=== PATIENT | female | born 1980 | race Caucasian/White ===

== ENCOUNTER 2025-03-21 14:14 | Outpatient (AMB) | payer OTHER, SELFPAY ==
--- NOTE | 2025-03-21 14:21 | A.OFFVIS_ITS ---
Vital Signs 03/21/25 14:24 Height 5 ft 3 in Weight 188 lb 4 oz BMI 33.3 BP 142/88 H Blood Pressure Location Rt brachial Position Sitting Pulse 97 Pulse Source Pulse Oximeter Pulse Oximetry (%) 99 Oxygen Delivery Method Room Air Intake Visit Reasons: Asthma/ DENIS Allergies amoxicillin (AMOXICILLIN) Allergy (Intermediate, Unverified 03/21/25 14:26) PASSED OUT Penicillins (PENICILLINS) Allergy (Intermediate, Unverified 03/21/25 14:26) UNKNOWN Sulfa (Sulfonamide Antibiotics) (SULFA (SULFONAMIDE ANTIBIOTICS)) Allergy (Intermediate, Unverified 03/21/25 14:26) HIVES HPI HPI Asthma/ DENIS: Details: Leona is a pleasant 44 year old female, never smoker, with underlying asthma and DENIS not on CPAP. She was referred by PCP for further management for DENIS and asthma. Asthma has been present since childhood, primarily exacerbated during winter months, leading to bronchitis/pneumonia if not managed with a steroid inhaler like Pulmicort. The patient uses the inhaler preventively during colder months and reports no significant issues outside this period. She currently denies any respiratory symptoms. Seasonal allergies are severe, managed with Zyrtec, previously required allergen immunotherapy. The patient was diagnosed with obstructive sleep apnea several years ago, reportedly mild, continues with daytime fatigue and loud snoring. The patient has lost over 100 pounds, started on Zepbound in July, which may have impacted the severity of sleep apnea, and a repeat sleep study is considered. Celiac disease was diagnosed last summer, suspected to have contributed to previous weight gain and iron deficiency anemia previously required iron infusions with history of anaphylaxis during iron infusions. The patient adheres to a gluten-free diet, resulting in weight loss and improved anemia, though iron levels fluctuate, requiring monitoring by hematology and has upcoming follow up with [facility]. [facility] Social History (Updated 03/21/25 @ 14:26 by Alva Orozco MANAGER STRATEGY) Patient Tobacco Use Status: Never used Tobacco Review of Systems Const Denies chills, Denies excessive sweating, Denies fever(s), Denies headache(s) a nd Denies night sweats Eyes Denies dry eyes, Denies irritation and Denies itchy eyes ENT Reports Normal hearing present, Denies headache(s), Denies nasal congestion, Denies nasal discharge, Denies post nasal drip and Denies sore throat Card Denies chest pain, Denies chest pain at rest, Denies chest pain with activity, Denies claudication, Denies leg edema, Denies dyspnea, Denies dyspnea on exertion, Denies orthopnea and Denies paroxysmal nocturnal dyspnea Resp Denies chest congestion, Denies cough, Denies excessive phlegm production, Denies pain on inspiration, Denies pain with cough, Denies dyspnea, Denies dyspnea on exertion, Denies stridor and Denies wheezing Musc Denies myalgias Neuro Reports Normal hearing present and Denies headache(s) Endo Denies excessive sweating Ceferino/Lymph Denies lymphadenopathy Aller/Immun Denies itchy eyes, Denies seasonal rhinorrhea and Denies wheezing Physical Exam Vital Signs: Last Vital Signs Pulse 97 03/21/25 14:24 BP 142/88 H 03/21/25 14:24 Pulse Ox 99 03/21/25 14:24 Oxygen Delivery Method Room Air 03/21/25 14:24 BMI result Body Mass Index 33.3 Const General: cooperative, healthy appearing, comfortable, no acute distress, well developed and alert Nutritional Appearance: obese Orientation/consciousness: patient oriented x3 Limitations: no limitations HEENT Head: Yes normal to inspection, Yes normocephalic and Yes atraumatic Ears: hearing grossly normal bilaterally and external ears normal Eyes General: appearance normal, both eyes and all related structures Eyelids: Yes eyelids normal Sclerae: sclerae normal EOM: EOMs intact bilaterally Neck Neck: Yes normal visual inspection and Yes no lymphadenopathy Lymphatic: no lymphadenopathy noted Chest Chest palpation & inspection: normal inspection of the chest Resp Effort & Inspection: normal respiratory effort, able to speak in complete sentences, no audible wheezes, no cough, no stridor, not tachypneic, no tripod positioning and no use of accessory muscles Auscultation: clear to auscultation bilaterally Cardio Jugular venous distension: no JVD Rate: regular rate Rhythm: regular rhythm Skin Other: warm, dry General skin exam: no rashes or lesions noted Neuro General: patient oriented x3 Cranial nerves: Yes Normal hearing present Cognition (Neuro): normal cognition Gait exam (Neuro): Normal gait present Extrem General: Yes normal to inspection, Yes capillary refill normal, Yes no clubbing, cyanosis or edema and Yes no pedal edema Psych Appearance: grossly normal and well kempt Speech and movement: Normal speech and movement present and Clear speech present Affect: normal affect Attitude: cooperative Thought process: Normal thought process present Thought content: Normal thought content present Insight: Good insight present (Psych) Judgement: Good judgement present (Psych) Assessment & Plan Assessment & Plan (1) Asthma: Code(s): J45.909 - Unspecified asthma, uncomplicated Category: Medical (2) Environmental allergies: Code(s): Z91.09 - Other allergy status, other than to drugs and biological substances Category: Medical Plan For asthma management, the patient will continue using Pulmicort during winter months to prevent exacerbations and potential pneumonia. A repeat home sleep study is planned to reassess the severity of obstructive sleep apnea following significant weight loss and continued daytime fatigue. The patient will undergo allergy testing via blood work to identify specific allergens contributing to seasonal allergies. Pulmonary function tests will be conducted to establish a baseline for asthma management. All questions were answered and patient is in agreement of plan. Will follow up to review results or sooner if needed. Orders: Orders Immunoglobulin E Today Z91.09 - Other allergy status, other than to drugs and biological substances Resp Allergy Profile Region I Today Z91.09 - Other allergy status, other than to drugs and biological substances RT home sleep study Today R40.0 - Somnolence PFT pulmonary function test Today J45.909 - Unspecified asthma, uncomplicated Medications: New albuterol sulfate 90 mcg/actuation 2 puffs inhalation Q4-6H PRN 1 ea 3RF shortness of breath or wheezing Coding Level of Care Code New Pt Level 4 (81775) Diagnoses Asthma J45.909 Environmental allergies Z91.09
[2025-03-21 14:24] VITALS: BP 142/88; PULSE 97; O2SAT 99; BMI 33.3
--- OUTSIDE RECORDS SUMMARY | 2025-03-21 14:56 | XMS_ITS | Clinical Summary ---
Author Organization [address] [facility] Address [address] [place] [address] Phone Care Team Providers Care Patch Press Operator Name Role Phone Matt Weller MD Primary Care Provider [phone] Allergies Active Allergy Reactions Criticality Noted Date Comments Amoxicillin 11/03/2019 Penicillins 05/17/2013 Sulfa (Sulfonamide Antibiotics) 05/07 Medications multivitamin (DAILY VITAMIN ORAL) VITAMIN D OR Take by mouth Active buPROPion SR (WELLBUTRIN SR) 200 mg 12 hr tablet TAKE 1 TABLET BY MOUTH TWICE A DAY 3 Active hydrOXYzine HCL (ATARAX) 10 mg tablet Take 1 Tablet by mouth every 8 hours as needed for Anxiety. 3 Active lisdexamfetami ne (VYVANSE) 30 mg capsule Take 1 Capsule by mouth every morning. Active albuterol HFA (PROAIR HFA ; PROVENTIL HFA ; VENTOLIN HFA) 90 mcg/actuation inhaler Inhale 2 puffs by mouth every 4 (four) hours if needed for wheezing or shortness of breath. 6.7 g 4 Active EPINEPHrine (EpiPen 2-Alexsander) 0.3 mg/0.3 mL injection Inject 0.3 mL (0.3 mg total) into the thigh if needed for anaphylaxis. 1 each 4 Active budesonide (PULMICORT) 90 mcg/actuation inhaler Inhale 1 puff by mouth 2 (two) times a day. Rinse mouth with water after use to reduce aftertaste and incidence of candidiasis. Do not swallow. 3 each 1 4 Active BinaxNOW COVID-19 Ag Self Test kit TEST DIRECTED TODAY 4 Active levothyroxine (SYNTHROID, LEVOTHROID) 88 mcg tablet Take 1 tablet (88 mcg total) by mouth 1 (one) time each day. 90 tablet 1 5 Active cetirizine (ZyrTEC) 10 mg tablet Take 1 tablet (10 mg total) by mouth 1 (one) time each day. 90 tablet 1 5 Active ergocalciferol (CALCIDOL, VIT D-2,) 200 mcg/mL (8,000 unit/mL) drops Take 0.5 mL (4,000 Units total) by mouth 1 (one) time each day. Active fluticasone propionate (FLONASE) 50 mcg/actuation nasal spray Administer 2 sprays into each nostril 1 (one) time each day. Shake gently. Before first use, prime pump. After use, clean tip and replace cap. 16 g 5 5 12/26/19 26 Active tirzepatide, weight loss, (Zepbound) 15 mg/0.5 mL injection Inject 0.5 mL (15 mg total) under the skin every 7 (seven) days for 28 days. 2 mL 5 03/30/20 25 Active tirzepatide, weight loss, (Zepbound) 15 mg/0.5 mL injection Inject 0.5 mL (15 mg total) under the skin every 7 (seven) days for 28 days. 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 ALL LEA) 12/25/2024 2:50 PM EDT Lab Draw Station - [address] [facility] [address] [facility] [place] [phone] Vitamin D deficiency; Low vitamin B12 level; Screening for metabolic disorder; Edilberto's disease 12/25/2024 2:15 PM EDT Office Visit Bariatric Surgery - [place] [address] [place] [phone] Tomasa Beth PA Obesity (BMI 35.0-39.9 without comorbidity) (Primary Dx) 12/25/2024 1:00 PM EDT Office Visit Internal Medicine - [facility] [address] [place] [address] Lakshmi Posada NP Screening for metabolic disorder (Primary Dx); Moderate persistent asthma without complication; DENIS (obstructive sleep apnea); Vitamin D deficiency; Obesity (BMI 35.0-39.9 without comorbidity); Edilberto's disease; Attention deficit hyperactivity disorder (ADHD), combined type; Other depression; Low vitamin B12 level; Postnasal drip; Allergy to gluten from Last 3 Months Immunizations Name Administration Dates Next Due HPV 9-valent (Gardisil) 9yo to less than 46yo 10/16/2024,11/17/2023,09/03/2023 Influenza Quadravalent, MDCK , 0.5ml, preservative free (Flucelvax) 6mo and older 07/16/2023 Influenza Quadrivalent, 0.5m l, preservative free (Fluarix; FluLaval; Fluzone) ages 6mo and older (Afluria) 3yo and older 07/16/2022,07/14/2021,05/21/2020 Pneumococcal conjugate 20 va lent (Prevnar 20, PCV 20) 2mo and older 08/20/2022 Td Tetanus diptheria (Tdvax) 7yo and older 07/16 Tdap Tetanus diptheria acell ular pertussis (Boostrix; Adacel) 7yo and older 07/14/2013 Surgical History Surgery Date Site/Laterality Comments NASAL SEPTUM SURGERY 2008 PROCEDURE: SD SEPTOPLASTY/SUBMUCOUS RESECJ W/WO CARTILAGE GRF TONSILLECTOMY 2008 PROCEDURE: HISTORICAL TONSILLECTOMY SECTION 2010 PROCEDURE: HISTORICAL DELIVERY ADENOIDECTOMY PROCEDURE: HISTORICAL ADENOIDECTOMY Family History Medical History Relation Name Comments Allergies Father Breast cancer Maternal Grandmother Depression Mother Osteoporosis Mother Thyroid disease Mother Relation Name Status Comments Father Maternal Grandmother Mother Social History Tobacco Use Types Packs/Day Years Used Date Smoking Tobacco: Never Smokeless Tobacco: Never Tobacco Cessation:Counseling Given: Not Answered Alcohol Use Standard Drinks/Week Comments No 0 (1 standard drink = 0.6 oz pur e alcohol) Comments Unknown Sex and Gender Information Value Date Recorded Sex Assigned at Female 07/11/2024 12:22 AM EST Legal Sex Female 9:40 AM EST Gender Identity Female 07/11/2024 12:22 AM EST Sexual Orientation Not on file Obstetrics History Last Filed Vital Signs Vital Sign Reading Time Taken Comments Blood Pressure 132/90 12/25/2024 2:15 PM EDT Pulse 96 12/25/2024 2:15 PM EDT Temperature 36.6 C (97.8 F) 12/25/2024 1:03 PM EDT Respiratory Rate - - Oxygen Saturation - - Inhaled Oxygen Concentration - - Weight 95.3 kg (210 lb) 12/25/2024 2:15 PM EDT Height 160 cm (5' 3 ) 12/25/2024 2:15 PM EDT Body Mass Index 37.2 12/25/2024 2:15 PM EDT Plan of Treatment Upcoming Encounters Date Type Department Care Team (Late st Contact Info) Description 03/28/2025 3:45 PM EDT Office Visit Bariatric Surgery - [place] [address] [phone] Tomasa Beth PA [address] [address] 06/26/2025 2:30 PM EDT Office Visit Internal Medicine - [address] [phone] Lakshmi Posada, LUZ [address] [place] [id number] Health Maintenance Due Date Last Done Comments Hepatitis B Vaccines (1 of 3 - 19+ 3-dose series) 1999 HIV Screening 08/15/2022 Hepatitis C Screening 08/15/2022 Social Influencers of Health Screening 08/15/2022 Depression Screening 07/16/2024 07/16/2023 Cervical Cancer Screening: Pap Smear 02/11/2025 02/11/2022 Influenza Vaccine (#1) 2025 , 07/16/2022, 07/14/2021, Additional history exists Breast Cancer Screening 10/03/2026 10/03/2024 Cholesterol Screening (Lipid Panel) 02/25/2027 02/25/2022 DTaP,Tdap,and Td Vaccines (3 - Td or Tdap) 07/16/2033 07/16/2023, 07/14/2013 Pneumococcal Vaccine: Pediatrics (0 to 5 Years) and At-Risk Patients (6 to 49 Years) Completed 08/20/2022 COVID-19 Vaccine Completed 07/24/2024, , 07/16/2022, Additional history exists HPV Vaccines Completed 10/16/2024, 11/04, 09/03/2023 HIB Vaccines Aged Out No longer eligi ble based on patient's age to complete this topic Hepatitis A Vaccines Aged Out No long er eligible based on patient's age to complete this topic IPV Vaccines Aged Out No longer eligi ble based on patient's age to complete this topic MMR Vaccines Aged Out No longer eligi ble based on patient's age to complete this topic Meningococcal ACWY Vaccine Aged Out N o longer eligible based on patient's age to complete this topic Meningococcal B Vaccine Aged Out No l onger eligible based on patient's age to complete this topic RSV Immunization Patients Under 20 months Aged Out No longer eligible based on patient's age to complete this topic Varicella Vaccines Aged Out No longer eligible based on patient's age to complete this topic Procedures Procedure Name Priority Date/Time Associated Diagnosis Comments THYROID STIMULATING HORMONE WITH REFLEX TO FREE T4 AND FREE T3 Routine 12/25/2024 3:29 PM EDT Edilberto's disease COMPREHENSIVE METABOLIC PANEL Routine 12/25/2024 3:29 PM EDT Screening for metabolic disorder VITAMIN B12 Routine 12/25/2024 3:29 PM EDT Low vitamin B12 level VITAMIN D 25 HYDROXY Routine 12/25/2024 3:29 PM EDT Vitamin D deficiency EXTERNAL MAMMOGRAM REPORT 10/03/2024 HM DEPRESSION SCREENING Routine 07/16/2023 LIPID PANEL Routine 02/25/2022 HM PAP SMEAR Routine 02/11/2022 from Last 3 Months or Most Recently Relevant to Health Maintenance Results * Thyroid stimulating hormone with reflex to free t4 and free t3 (12/25/2024 3:29 PM EDT) Pathologist [facility] TSH 0.85 0.40 - 4.00 mcIU/mL LAB CHEMISTRY METHOD 12/25/2024 9:21 PM EDT [facility] Blood Venous blood specimen / Unknown Venipuncture / Unknown 12/25/2024 3:29 PM EDT 12/25/2024 4:32 PM EDT us Lakshmi Orta AGRICULTURAL SERVICE WORKER LAB BLOOD ORDERABLES Final R esult [facility] [address] [place] [address], [place] [phone] * Vitamin D 25 hydroxy (12/25/2024 3:29 PM EDT) Pathologist [facility] Vit D, 25-Hydroxy 30.7 30.0 - 80.0 ng/mL LAB CHEMISTRY METHOD 12/25/2024 9:21 PM EDT [facility] Blood Venous blood specimen / Unknown Venipuncture / Unknown 12/25/2024 3:29 PM EDT 12/25/2024 4:32 PM EDT us Lakshmi Orta AGRICULTURAL SERVICE WORKER LAB BLOOD ORDERABLES Final R esult Performing Organization Address City/[facility]/ZIP Co de Phone Number [facility] [address] [place] [address], [place] [phone] * (ABNORMAL) Vitamin B12 (12/25/2024 3:29 PM EDT) [facility] Vitamin B-12 1,591(H) 250 - 900 pcg/mL LAB CHEMISTRY METHOD 12/25/2024 8:32 PM EDT [facility] Blood Venous blood specimen / Unknown Venipuncture / Unknown 12/25/2024 3:29 PM EDT 12/25/2024 4:32 PM EDT us Lakshmi Orta AGRICULTURAL SERVICE WORKER LAB BLOOD ORDERABLES Final R esult Performing Organization Address City/[facility]/ZIP Co de Phone Number [facility] [address] [place] [address], [place] [phone] * (ABNORMAL) Comprehensive metabolic panel (12/25/2024 3:29 PM EDT) [facility] Sodium 135 133 - 145 mmol/L LAB CHEMISTRY METHOD 12/25/2024 8:32 PM EDT [facility] Potassium 4.5 3.5 - 5.5 mmol/L LAB CHEMISTRY METHOD 12/25/2024 8:32 PM EDT [facility] Chloride 101 96 - 110 mmol/L LAB CHEMISTRY METHOD 12/25/2024 8:32 PM EDT [facility] CO2 26 21 - 32 mmol/L LAB CHEMISTRY METHOD 12/25/2024 8:32 PM EDT [facility] Anion Gap 8 3 - 11 LAB CHEMISTRY METHOD 12/25/2024 8:32 PM EDT [facility] Glucose 103(H) 70 - 100 mg/dL LAB CHEMISTRY METHOD 12/25/2024 8:32 PM [facility] BUN 9 5 - 25 mg/dL LAB CHEMISTRY METHOD 12/25/2024 8:32 PM [facility] Creatinine 0.95 0.50 - 1.10 mg/dL LAB CHEMISTRY METHOD 12/25/2024 8:32 PM [facility] eGFR 76 >=60 mL/min/1. 73m2 LAB CHEMISTRY METHOD 12/25/2024 8:32 PM [facility] Comment:Calculation based on the Chronic Kidney Disease Epidemiology Collaboration (CKD-EPI) equation refit without adjustment for race. BUN/Creatinine Ratio 9.5 LAB CHEMISTRY METHOD 12/25/2024 8:32 PM [facility] Calcium 10.0 8.5 - 10.5 mg/dL LAB CHEMISTRY METHOD 12/25/2024 8:32 PM [facility] AST (SGOT) 16 10 - 42 unit/L LAB CHEMISTRY METHOD 12/25/2024 8:32 PM [facility] ALT (SGPT) 25 10 - 60 unit/L LAB CHEMISTRY METHOD 12/25/2024 8:32 PM [facility] Alkaline Phosphatase 92 42 - 121 unit/L LAB CHEMISTRY METHOD 12/25/2024 8:32 PM [facility] Total Protein 7.0 6.0 - 8.0 g/dL LAB CHEMISTRY METHOD 12/25/2024 8:32 PM [facility] Albumin 4.1 3.2 - 5.0 g/dL LAB CHEMISTRY METHOD 12/25/2024 8:32 PM [facility] Total Bilirubin 0.6 0.0 - 1.4 mg/dL LAB CHEMISTRY METHOD 12/25/2024 8:32 PM [facility] Blood Venous blood specimen / Unknown Venipuncture / Unknown 12/25/2024 3:29 PM EDT 12/25/2024 4:32 PM EDT Lakshmi Orta NP LAB BLOOD ORDERABLES Final R esult [facility] [address] [place] [address], [place] [phone] * External Mammogram Report (10/03/2024) Anatomical Region Laterality Modality Mammography Provider [facility] BI PROCEDURES Final Result * Depression Screening (07/16/2023) Depression Screening Abstracted Historical Provider HEALTH MAINTENANCE Final Result * Lipid panel (02/25/2022) LDL/HDL Ratio 3 0 - 4 Triglycerides 87 0 - 150 mg/dL Cholesterol 163 0 - 200 mg/dL HDL 51 >=40 mg/dL LDL Cholesterol 95 0 - 100 mg/dL Blood Venous blood specimen / Unknown Historical Provider LAB BLOOD ORDERABLES Sujatha l Result * Pap Smear (02/11/2022) Pap smear No Interpretation , Abstracted Historical Provider HEALTH MAINTENANCE Final Result from Last 3 Months or Most Recently Relevant to Health Maintenance [place] [address] MEDICA[place] Care Teams Patch Press Operator Relationship Specialty Start Date End Date Matt Weller MD [address] [place] [id number] PCP - General Internal Medicine 10/25/19
== END 2025-03-21 14:57 | disposition home or self-care (01) ==
LOC: HO.HPSW 14:15
PROVIDERS: PCP Internal Medicine; Visit Provider Nurse Practitioner Family
DX: J45.909 Unspecified asthma, uncomplicated (principal); Z91.09 Other allergy status, other than to drugs and biological substances
CPT/HCPCS: 99204

== ENCOUNTER → 2025-06-19 12:43 | Outpatient (REF) | payer OTHER, SELFPAY ==
--- OUTSIDE RECORDS SUMMARY | 2025-06-19 15:22 | XMS_ITS | Clinical Summary ---
Author Organization [facility] Address [address] [address] Phone Care Team Providers Care Senior Market Intelligence Consultant Name Role Phone Sherry Han NP Primary Care Provider Allergies Active Allergy Reactions Criticality Noted Date Comments Amoxicillin 01/28/2024 Penicillins Other (See Comments) 12/06/2008 syncope Sulfa (Sulfonamide Antibiotics) Other (See Comments) 12/06/2008 rash Active Problems Problem Noted Date Diagnosed Date Graves' disease 05/28/2008 Overview (10/27/2014): Graves' disease; Hyperthyroid 08/08-07/10 on methimazole hyperthyroid 01/08-02/09 on PTU Asthma 05/28/2008 Overview (10/27/2014): Asthma Uncoded 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 Not on paola e 01/28/2024 Are you concerned about learning? Not on file 01/28/2024 No 01/28/2024 No 01/28/2024 Digital Access Answer Date Recorded No 01/28/2024 No 01/28/2024 Reliable internet access at home? Not on file 01/28/2024 Device with a working camera? Not on file Intimate Partner Violence Answer Date R ecorded Are you denied basic needs s uch as food, clothing, or medical care? No 01/28/2024 In the past 12 months have y ou been in a relationship with a person who hurts, threatens, or tries to control you? No 01/28/2024 Are you denied basic needs s uch as food, clothing, or medical care? No 01/28/2024 In the past 12 months have y ou been in a relationship with a person who hurts, threatens, or tries to control you? No 01/28/2024 Comments Unknown Sex and Gender Information Value Date Recorded Sex Assigned at Female 02/02/2024 9:35 AM EDT Legal Sex Female 5:50 PM EST Gender Identity Female 02/02/2024 9:35 AM EDT Sexual Orientation Straight 02/02/2024 9: 35 AM EDT Last Filed Vital Signs Vital Sign Reading Time Taken Comments Blood Pressure 116/66 01/28/2024 11:00 PM EDT Pulse 77 01/28/2024 11:00 PM EDT Temperature 36.6 C (97.9 F) 01/28/2024 11:00 PM EDT Respiratory Rate 16 01/28/2024 11:00 PM EDT Oxygen Saturation 97% 01/28/2024 11:00 PM EDT Inhaled Oxygen Concentration - - Weight 117.9 kg (260 lb) 01/28/2024 4:55 PM EDT Height 162.6 cm (5' 4 ) 01/28/2024 4:55 PM EDT Body Mass Index 44.63 01/28/2024 4:55 PM EDT Plan of Treatment Health Maintenance Due Date Last Done Comments Adult Td,Tdap Booster 1980 LIPID PANEL 1980 DEPRESSION SCREENING 1992 SMOKING Hx and SMOKELESS TOB ACCO SCREENING 1993 HEPATITIS C SCREENING 1998 HIV ONE-TIME SCREENING (18-6 5 YEARS) 1998 PNEUMOCOCCAL VACCINES (0-49 years) (1 of 2 - PCV) 1999 PAP SMEAR 2001 MAMMOGRAM 2020 INFLUENZA VACCINE (#1) 2025 COVID-19 VACCINE (1 - 2024-2 6 season) 2025 COLOGUARD 2025 COLONOSCOPY 2025 COLORECTAL CANCER SCREENING 2025 FIT TEST 2025 FOBT 2025 SIGMOIDOSCOPY 2025 VIRTUAL COLONOSCOPY 2025 SCREENING FOR DIABETES 01/27/2027 01/28/2024 HEPATITIS A VACCINES Aged Out No long er eligible based on patient's age to complete this topic HIB VACCINES Aged Out No longer eligi ble based on patient's age to complete this topic MENINGOCOCCAL VACCINES (ACWY) Aged Out No longer eligible based on patient's age to complete this topic MENINGOCOCCAL VACCINES (B) Aged Out N o longer eligible based on patient's age to complete this topic Medical Devices Not on file Insurance [facility] Address: [address] [address] [facility] Address[facility] [address] [address] [facility] Address[facility] [address] [address] [facility] Care Teams Senior Market Intelligence Consultant Relationship Specialty Start Date End Date Sherry Han NP [address] [place] [phone] PCP - General Nurse Practitioner 01/28/24 Additional Source Comments The information contained in this document represents components of the legal health record. It is not the complete legal health record.[facility]
--- OUTSIDE RECORDS SUMMARY | 2025-06-19 15:22 | XMS_ITS | Encounter Summary ---
Author Organization [facility] Address [address] [address] Phone Care Team Providers Care Manager Money Name Role Phone Sherry Han NP Primary Care Provider [phone] Encounter Details Date Type Department Care Team (Late st Contact Info) Description 01/28/2024 Procedure Pass [facility], [facility] Scan - [address] [address] Social History Tobacco Use Types Packs/Day Years [...] Orientation Straight 02/02/2024 9: 35 AM EDT documented as of this encounter Functional Status * Calculated C-SSRS Risk Score (Lifetime/Recent) Answer Date of Assessment Author No Risk Indicated 01/28/2024 4:50 PM EDT Davis Emery, BRENNEN * [place] Suicide Severity Rating Scale (Screener/Recent Self-Report) Question Answer Date of Assessment Author 1. Wish to be (Past 1 Month) No 024 4:50 PM EDT Davis Emery, BRENNEN 2. Non-Specific Active Suici dulce Thoughts (Past 1 Month) No 01/28/2024 4:50 PM EDT Davis Emery, BRENNEN 6. Suicidal Behavior (Lifetime) No 4:50 PM EDT Davis Emery, BRENNEN documented as of this encounter Plan of Treatment Not on file documented as of this encounter Visit Diagnoses Not on filedocumented in this encounter Care Teams Manager Money Relationship Specialty Start Date End Date Sherry Han NP [address] [place] [id number] PCP - General Nurse Practitioner 01/28/24 documented as of this encounter Additional Source Comments The information contained in this document represents components of the legal health record. It is not the complete legal health record.[facility]
--- OUTSIDE RECORDS SUMMARY | 2025-06-19 15:22 | XMS_ITS | Clinical Summary ---
Author Organization 175 [facility] Address [address] [place] [address] Phone Care Team Providers Care Plant And Instrument Engineer Name Role Phone Matt Weller MD Primary Care Provider Un available Allergies Active Allergy Reactions Criticality Noted Date [...] hours as needed for Anxiety. 3 Active lisdexamfetamin e (VYVANSE) 30 mg capsule Take 1 Capsule [...] 16 g 5 5 12/26/19 26 Active B complex-vitamin C-folic acid (NEPHROCAPS) 1 mg capsuleIndicati ons:Class 1 obesity due to excess calories with body mass index (BMI) of 33.0 to 33.9 in adult, unspecified whether serious comorbidity present Take 1 capsule by mouth 1 (one) time each day. 30 capsule 11 5 05/11/20 26 Active tirzepatide, weight loss, (Zepbound) 15 mg/0.5 mL injectionIndica tions:Class 1 obesity due to excess calories with body mass index (BMI) of 33.0 to 33.9 in adult, unspecified whether serious comorbidity present Inject 0.5 mL (15 mg total) under the skin every 7 (seven) days. 2 mL 5 Active tirzepatide, weight loss, (Zepbound) 15 mg/0.5 mL injectionIndica tions:Class 1 obesity due to excess calories with body mass index (BMI) of 33.0 to 33.9 in adult, unspecified whether serious comorbidity present Inject 0.5 mL (15 mg total) under the skin every 7 (seven) days. 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 Overview (06/30/2024): Sees [facility] Endocrinology Vitamin D deficiency 12/14/2016 Asthma 12/11/2016 Resolved Problems Problem Noted Date Diagnosed Date Resolved Date Obesity (BMI 35.0-39.9 without comorbidity) 08/09/2024 03/28/2025 Encounters Date Type Department Care Team Description 03/28/2025 3:45 PM EDT Office Visit Bariatric Surgery - [address] [place] [address] Tomasa Beth, PA Class 1 obesity due to excess calories with body mass index (BMI) of 33.0 to 33.9 in adult, unspecified whether serious comorbidity present (Primary Dx) from Last 3 Months Immunizations Immunization Administration Dates Next Due HPV 9-valent (Gardisil) [...] Site/Laterality Comments NASAL SEPTUM SURGERY 2008 PROCEDURE: IL SEPTOPLASTY/SUBMUCOUS RESECJ W/WO CARTILAGE GRF TONSILLECTOMY 2008 PROCEDURE: HISTORICAL TONSILLECTOMY SECTION 2009 PROCEDURE: HISTORICAL DELIVERY ADENOIDECTOMY PROCEDURE: HISTORICAL ADENOIDECTOMY [...] Sign Reading Time Taken Comments Blood Pressure 150/100 03/28/2025 3:44 PM EDT Pulse 106 03/28/2025 3:44 PM EDT Temperature 36.6 C (97.8 F) 12/25/2024 1:03 PM EDT Respiratory Rate - - Oxygen Saturation - - Inhaled Oxygen Concentration - - Weight 84.6 kg (186 lb 6.4 oz) 03/28/2025 3:44 P M EDT Height 160 cm (5' 3 ) 03/28/2025 3:44 PM EDT Body Mass Index 33.02 03/28/2025 3:44 PM EDT Plan of Treatment Upcoming Encounters Date Type Department Care Team (Late st Contact Info) Description 06/26/2025 2:30 PM EDT Office Visit Internal Medicine - [facility] [address] [place] [address] Lakshmi Posada NP [address] [place] [address] 06/27/2025 9:45 AM EDT Office Visit Bariatric Surgery - [place] [address] [place] [phone] Tomasa Beth PA [address] [place] [address] Health Maintenance Due Date Last Done Comments Colorectal Cancer Screening: Colonoscopy 1980 Hepatitis B Vaccines (1 of 3 - 19+ 3-dose series) 1999 HIV Screening 08/15/2022 Hepatitis C Screening 08/15/2022 Social Influencers of Health Screening 08/15/2022 Depression Screening 09/06/2024 07/16/2023 Cervical Cancer Screening: Pap Smear 02/11/2025 02/11/2022 Influenza Vaccine (#1) 2025 , 07/16/2022, 07/14/2021, Additional history exists Breast Cancer Screening 10/03/2026 10/03/2024 Cholesterol Screening (Lipid Panel) 02/25/2027 02/25/2022 DTaP,Tdap,and Td Vaccines (3 - Td or Tdap) 07/16/2033 07/16/2023, 07/14/2013 RSV Immunization Adult Patients (1 - 1-dose 75+ series) 2055 Pneumococcal Vaccine: Pediatrics (0 to 5 Years) [...] Procedure Name Priority Date/Time Associated Diagnosis Comments ALLERGEN RESPIRATORY PROFILE AREA 1 CT,MA,ME,NH,NJ,PA,RI,V T IGE Routine 04/27/2025 4:31 PM EDT Allergy to sunlight IMMUNOGLOBULIN IGE Routine 04/27/2025 4: 31 PM EDT Allergy to sunlight SELENIUM SERUM Routine 04/27/2025 4:31 PM EDT Class 1 obesity due to excess calories with body mass index (BMI) of 33.0 to 33.9 in adult, unspecified whether serious comorbidity present VITAMIN B1 Routine 04/27/2025 4:31 PM EDT Class 1 obesity due to excess calories with body mass index (BMI) of 33.0 to 33.9 in adult, unspecified whether serious comorbidity present VITAMIN B12 Routine 04/27/2025 4:31 PM EDT Class 1 obesity due to excess calories with body mass index (BMI) of 33.0 to 33.9 in adult, unspecified whether serious comorbidity present VITAMIN D 25 HYDROXY Routine 04/27/2025 4:31 PM EDT Class 1 obesity due to excess calories with body mass index (BMI) of 33.0 to 33.9 in adult, unspecified whether serious comorbidity present VITAMIN B6 Routine 04/27/2025 4:31 PM EDT Class 1 obesity due to excess calories with body mass index (BMI) of 33.0 to 33.9 in adult, unspecified whether serious comorbidity present ZINC Routine 04/27/2025 4:31 PM EDT Class 1 obesity due to excess calories with body mass index (BMI) of 33.0 to 33.9 in adult, unspecified whether serious comorbidity present IRON AND TIBC Routine 04/27/2025 4:31 PM EDT Class 1 obesity due to excess calories with body mass index (BMI) of 33.0 to 33.9 in adult, unspecified whether serious comorbidity present FOLATE Routine 04/27/2025 4:31 PM EDT Class 1 obesity due to excess calories with body mass index (BMI) of 33.0 to 33.9 in adult, unspecified whether serious comorbidity present COMPREHENSIVE METABOLIC PANEL Routine 04/27/2025 4:31 PM EDT Class 1 obesity due to excess calories with body mass index (BMI) of 33.0 to 33.9 in adult, unspecified whether serious comorbidity present HEPATITIS B SURFACE ANTIBODY Routine 04/27/2025 4:31 PM EDT Screening for endocrine, nutritional, metabolic and immunity disorder Antibody response examination EXTERNAL MAMMOGRAM REPORT 10/03/2024 HM DEPRESSION SCREENING Routine 07/16/2023 LIPID PANEL Routine 02/25/2022 HM PAP SMEAR Routine 02/11/2022 from Last 3 Months or Most Recently Relevant to Health Maintenance Results * (ABNORMAL) Allergen respiratory profile area 1 CT,MA,ME,NH,NJ,PA,RI,VT IgE (04/27/2025 4:31 PM EDT) Alternaria alternata, IgE <0.10 <0.10 kU/L 05/01/2025 3:19 PM EDT [facility] Alternaria alternata Class CLASS 0 05/01/2025 3:19 PM EDT [facility] Aspergillus fumigatus, IgE <0.10 <0.10 kU/L 05/01/2025 3:19 PM EDT [facility] Aspergillus fumigatus Class CLASS 0 05/01/2025 3:19 PM EDT [facility] Bermuda Grass, IgE <0.10 <0.10 kU/L 05/01/2025 3:19 PM EDT [facility] Bermuda Grass Class CLASS 0 05/01 3:19 PM EDT [facility] Common Silver Birch, IgE <0.10 <0.10 kU/L 05/01/2025 3:19 PM EDT [facility] Common Silver Birch Class CLASS 0 05/01/2025 3:19 PM EDT [facility] Cat Dander, IgE 0.18(H) <0.10 kU/L 05/01/2025 3:19 PM EDT [facility] Cat Dander Class CLASS 0/1 05/01/20 3:19 PM EDT [facility] Cladosporium herbarum, IgE <0.10 <0.10 kU/L 05/01/2025 3:19 PM EDT [facility] Cladosporium herbarum Class CLASS 0 05/01/2025 3:19 PM EDT [facility] Cockroach, Palauan, IgE <0.10 <0.10 kU/L 05/01/2025 3:19 PM EDT [facility] Cockroach, Palauan Class CLASS 0 05/01/2025 3:19 PM EDT [facility] Challis, IgE <0.10 <0.10 kU/L 05/01/2025 3:19 PM EDT [facility] Challis Class CLASS 0 05/01/20 3:19 PM EDT [facility] Dermatophagoides farinae, IgE 0.15(H) <0.10 kU/L 05/01/2025 3:19 PM EDT [facility] Dermatophagoides farinae Class CLASS 0/1 05/01/2025 3:19 PM EDT [facility] Dermatophagoides pteronyssinus, IgE <0.10 <0.10 kU/L 05/01/2025 3:19 PM EDT [facility] Dermatophagoides pteronyssinus Class CLASS 0 05/01/2025 3:19 PM EDT [facility] Dog Dander, IgE <0.10 <0.10 kU/L 05/01/2025 3:19 PM EDT [facility] Dog Dander Class CLASS 0 05/01/20 3:19 PM EDT [facility] Elm, IgE <0.10 <0.10 kU/L 05/01/2025 3:19 PM EDT [facility] Elm Class CLASS 0 05/01/2025 3:19 PM EDT [facility] Maple (Merrick), IgE <0.10 <0.10 kU/L 05/01/2025 3:19 PM EDT [facility] Maple (Merrick) Class CLASS 0 05/01/2025 3:19 PM EDT [facility] Maple Rio Dell Syc., Elizalde Plane, IgE <0.10 <0.10 kU/L 05/01/2025 3:19 PM EDT [facility] Maple Rio Dell Syc, Elizalde Plane Class CLASS 0 05/01/2025 3:19 PM EDT [facility] Mountain Juniper, IgE <0.10 <0.10 kU/L 05/01/2025 3:19 PM EDT [facility] Mountain Juniper Class CLASS 0 05/01/2025 3:19 PM EDT [facility] Mouse Urine Proteins, IgE <0.10 <0.10 kU/L 05/01/2025 3:19 PM EDT [facility] Mouse Urine Proteins Class CLASS 0 05/01/2025 3:19 PM EDT [facility] Mugwort (sagebrush), IgE <0.10 <0.10 kU/L 05/01/2025 3:19 PM EDT [facility] Mugwort (sagebrush) Class CLASS 0 05/01/2025 3:19 PM EDT [facility] Bally, IgE <0.10 <0.10 kU/L 05/01/2025 3:19 PM EDT [facility] Bally Class CLASS 0 05/01/2025 3:19 PM EDT [facility] Exira, IgE <0.10 <0.10 kU/L 05/01/2025 3:19 PM EDT [facility] Exira Class CLASS 0 05/01/2025 3:19 PM EDT [facility] Penicillium chrysogenum, IgE <0.10 <0.10 kU/L 05/01/2025 3:19 PM EDT [facility] Penicillium chrysogenum Class CLASS 0 05/01/2025 3:19 PM EDT [facility] Common Pigweed, IgE <0.10 <0.10 kU/L 05/01/2025 3:19 PM EDT [facility] Common Pigweed Class CLASS 0 04/07 3:19 PM EDT [facility] Common Ragweed (short), IgE <0.10 <0.10 kU/L 05/01/2025 3:19 PM EDT [facility] Common Ragweed (short) Class CLASS 0 05/01/2025 3:19 PM EDT [facility] Sheep [place], IgE <0.10 <0.10 kU/L 05/01/2025 3:19 PM EDT [facility] Sheep [place] Class CLASS 0 2024 3:19 PM EDT [facility] Babar Grass, IgE <0.10 <0.10 kU/L 05/01/2025 3:19 PM EDT [facility] Babar Grass Class CLASS 0 05/01 3:19 PM EDT [facility] [place] Tree, IgE <0.10 <0.10 kU/L 05/01/2025 3:19 PM EDT [facility] [place] Tree Class CLASS 0 025 3:19 PM EDT [facility] White Jourdan, IgE <0.10 <0.10 kU/L 05/01/2025 3:19 PM EDT [facility] White Jourdan Class CLASS 0 3:19 PM EDT [facility] IgE 3.7 <114.0 IU/mL 05/01/2025 3:19 PM EDT [facility] Allergy Interpretation See Below 05/01/2025 3:19 PM EDT [facility] Comment: Level of Allergen CLASS kU/L Specific IgE Antibody ----- 0 <0.10 Undetectable 0/1 0.10 - 0.34 Very Low Level 1 0.35 - 0.69 Low Level 2 0.70 - 3.49 Moderate Level 3 3.50 - 17.4 High Level 4 17.5 - 49.9 Very High Level 5 50.0 - 100.0 Very High Level 6 >100.0 Very High Level Test performed at [facility], [address], [place] [address] Rosalba Gerber MD, PhD - Pvc Loader Blood Venous blood specimen / Unknown Venipuncture / Unknown 04/27/2025 4:31 PM EDT 04/27/2025 4:31 PM EDT us Fay Santos NP LAB BLOOD ORDERABLES Final Result [facility] [address] [place] [address] * (ABNORMAL) Iron and TIBC (04/27/2025 4:31 PM EDT) [facility] Iron 47 40 - 150 mcg/dL LAB CHEMISTRY METHOD 04/27/2025 6:55 PM EDT [facility] TIBC 234(L) 250 - 450 mcg/dL LAB CHEMISTRY METHOD 04/27/2025 6:55 PM EDT [facility] Iron Saturation 20 15 - 50 % LAB CHEMISTRY METHOD 04/27/2025 6:55 PM EDT [facility] Blood Venous blood specimen / Unknown Venipuncture / Unknown 04/27/2025 4:31 PM EDT 04/27/2025 4:31 PM EDT Tomasa JONES LAB BLOOD ORDERABLES Final R esult Performing Organization Address City/[facility]/ZIP Co de Phone Number [facility] [address] [place] [address], [place] [phone] * (ABNORMAL) Zinc (04/27/2025 4:31 PM EDT) [facility] Signature Zinc 48(L) 60 - 130 ug/dL 04/30/2025 12:47 PM EDT [facility] Comment: Elevated results may be due to sample collected in a non-certified trace element-free tube. This test was developed and the performance characteristics determined by [facility]. It has not been cleared or approved by the FDA. The laboratory is regulated under CLIA as qualified to perform high-complexity testing. This test is used for patient testing purposes. It should not be regarded as investigational or for research. Test performed at [facility], [address], [place] [address] Rosalba Gerber MD, PhD - Pvc Loader Blood Venous blood specimen / Unknown Venipuncture / Unknown 04/27/2025 4:31 PM EDT 04/27/2025 4:31 PM EDT Tomasa JONES LAB BLOOD ORDERABLES Final R esult [facility] [address] [place] [address] * Selenium serum (04/27/2025 4:31 PM EDT) Selenium 106 63 - 160 mcg/L 05/01/2025 5:00 PM EDT [facility] Comment: Testing was performed on a specimen submitted in a tube which has not been certified to be free of trace elements. Repeat testing on a specimen collected in a trace element tube is recommended prior to initiation of remedial action or environmental investigation of potential heavy metal sources. Refer to the [employer] for proper specimen collection information. This test was developed and its analytical performance characteristics have been determined by [employer] [place], [place]. It has not been cleared or approved by the U.S. Food and Drug Administration. This assay has been validated pursuant to the CLIA regulations and is used for clinical purposes. Test Performed by [employer] [employer] [facility], [address] [place] [address] Khoi Kam M.D., Ph.D., Director of Laboratories , CLIA [id number] Blood Venous blood specimen / Unknown Venipuncture / Unknown 04/27/2025 4:31 PM EDT 04/27/2025 4:31 PM EDT Tomasa JONES LAB BLOOD ORDERABLES Final R esult [facility] [address] [place] [address] * Vitamin D 25 hydroxy (04/27/2025 4:31 PM EDT) Vit D, 25-Hydroxy 35.4 30.0 - 80.0 ng/mL LAB CHEMISTRY METHOD 04/27/2025 7:00 PM EDT [facility] Blood Venous blood specimen / Unknown Venipuncture / Unknown 04/27/2025 4:31 PM EDT 04/27/2025 4:31 PM EDT Tomasa JONES LAB BLOOD ORDERABLES Final R esult Performing Organization Address [facility]/ZIP Co de Phone Number [facility] [address] [place] [address], * (ABNORMAL) Hepatitis B surface antibody (04/27/2025 4:31 PM EDT) Pathologist [facility] Hepatitis B Surface Ab Positive (A) Negative LAB CHEMISTRY METHOD 04/27/2025 7:01 PM EDT [facility] Hepatitis B Surface Ab Quantitative 107.3 mIU/mL LAB CHEMISTRY METHOD 04/27/2025 7:01 PM EDT [facility] Blood Venous blood specimen / Unknown Venipuncture / Unknown 04/27/2025 4:31 PM EDT 04/27/2025 4:31 PM EDT Narrative [facility] - 04/27/2025 7:01 PM EDT >=10 mIU/mL is considered to be consistent with immunity. Lakshmi Orta NP LAB BLOOD ORDERABLES Final R esult Performing Organization Address [facility] Co de Phone Number [facility] [address] [place] [address], [place] [phone] * (ABNORMAL) Vitamin B1 (04/27/2025 4:31 PM EDT) [facility] Vitamin B1 Whole Blood 36(L) 38 - 122 ug/L 05/02/2025 8:12 AM EDT [facility] Comment: This test was developed and the performance characteristics determined by [facility]. It has not been cleared or approved by the FDA. The laboratory is regulated under CLIA as qualified to perform high-complexity testing. This test is used for patient testing purposes. It should not be regarded as investigational or for research. Test performed at [facility], [address] , [place] [address] Rosalba Gerber MD, PhD - Pvc Loader Blood Venous blood specimen / Unknown Venipuncture / Unknown 04/27/2025 4:31 PM EDT 04/27/2025 4:31 PM EDT Tomasa JONES LAB BLOOD ORDERABLES Final R esult Performing Organization Address [facility]/ZIP Co de Phone Number [facility] [address] [place] [address] * (ABNORMAL) Vitamin B6 (04/27/2025 4:31 PM EDT) [facility] Vitamin B6 (Pyridoxine) Level 4(L) 5 - 50 ug/L 05/01/2025 12:50 PM EDT [facility] Comment: This test was developed and the performance characteristics determined by [facility]. It has not been cleared or approved by the FDA. The laboratory is regulated under CLIA as qualified to perform high-complexity testing. This test is used for patient testing purposes. It should not be regarded as investigational or for research. Test performed at [facility], [address] [facility], [place] [address] Rosalba Gerber MD, PhD - Pvc Loader Blood Venous blood specimen / Unknown Venipuncture / Unknown 04/27/2025 4:31 PM EDT 04/27/2025 4:31 PM EDT [facility] LAB BLOOD ORDERABLES Final R esult Performing Organization Address City/[facility]/ZIP Co de Phone Number [facility] [address] [place] [address] * Immunoglobulin IgE (04/27/2025 4:31 PM EDT) Pathologist [facility] IgE 2.8 0.0 - 158.0 I Unit/mL LAB CHEMISTRY METHOD 04/27/2025 7:00 PM EDT [facility] Blood Venous blood specimen / Unknown Venipuncture / Unknown 04/27/2025 4:31 PM EDT 04/27/2025 4:31 PM EDT Fay Santos NP LAB BLOOD ORDERABLES Final Result Performing Organization Address [facility]/ZIP Co de Phone Number [facility] [address] [place] [address], [place] [phone] * (ABNORMAL) Folate (04/27/2025 4:31 PM EDT) [facility] Folate 0.9(L) 2.8 - 17.0 ng/ml LAB CHEMISTRY METHOD 04/27/2025 6:58 PM EDT [facility] Blood Venous blood specimen / Unknown Venipuncture / Unknown 04/27/2025 4:31 PM EDT 04/27/2025 4:31 PM EDT T[facility] JONES LAB BLOOD ORDERABLES Final R esult Performing Organization Address [facility] Co de Phone Number [facility] [address] [place] [address], [place] [phone] * Vitamin B12 (04/27/2025 4:31 PM EDT) [facility] Vitamin B-12 539 250 - 900 pcg/mL LAB CHEMISTRY METHOD 04/27/2025 6:55 PM EDT [facility] Blood Venous blood specimen / Unknown Venipuncture / Unknown 04/27/2025 4:31 PM EDT 04/27/2025 4:31 PM EDT T[facility] JON[facility] LAB BLOOD ORDERABLES Final R esult Performing Organization Address [facility]/ZIP Co de Phone Number [facility] [address] [place] [address], * Comprehensive metabolic panel (04/27/2025 4:31 PM EDT) [facility] Sodium 134 133 - 145 mmol/L LAB CHEMISTRY METHOD 04/27/2025 6:55 PM EDT [facility] Potassium 4.7 3.5 - 5.5 mmol/L LAB CHEMISTRY METHOD 04/27/2025 6:55 PM [facility] Chloride 102 96 - 110 mmol/L LAB CHEMISTRY METHOD 04/27/2025 6:55 PM [facility] CO2 28 21 - 32 mmol/L LAB CHEMISTRY METHOD 04/27/2025 6:55 PM [facility] Anion Gap 4 3 - 11 LAB CHEMISTRY METHOD 04/27/2025 6:55 PM [facility] Glucose 93 70 - 100 mg/dL LAB CHEMISTRY METHOD 04/27/2025 6:55 PM [facility] BUN 9 5 - 25 mg/dL LAB CHEMISTRY METHOD 04/27/2025 6:55 PM [facility] Creatinine 0.89 0.50 - 1.10 mg/dL LAB CHEMISTRY METHOD 04/27/2025 6:55 PM [facility] eGFR 82 >=60 mL/min/1. 73m2 LAB CHEMISTRY METHOD 04/27/2025 6:55 PM [facility] Comment:Calculation based on the Chronic Kidney Disease Epidemiology Collaboration (CKD-EPI) equation refit without adjustment for race. BUN/Creatinine Ratio 10.1 LAB CHEMISTRY METHOD 04/27/2025 6:55 PM [facility] Calcium 9.3 8.5 - 10.5 mg/dL LAB CHEMISTRY METHOD 04/27/2025 6:55 PM [facility] AST (SGOT) 24 10 - 42 unit/L LAB CHEMISTRY METHOD 04/27/2025 6:55 PM [facility] ALT (SGPT) 29 10 - 60 unit/L LAB CHEMISTRY METHOD 04/27/2025 6:55 PM [facility] Alkaline Phosphatase 70 42 - 121 unit/L LAB CHEMISTRY METHOD 04/27/2025 6:55 PM [facility] Total Protein 6.1 6.0 - 8.0 g/dL LAB CHEMISTRY METHOD 04/27/2025 6:55 PM EDT [facility] Albumin 3.8 3.2 - 5.0 g/dL LAB CHEMISTRY METHOD 04/27/2025 6:55 PM EDT [facility] Total Bilirubin 0.6 0.0 - 1.4 mg/dL LAB CHEMISTRY METHOD 04/27/2025 6:55 PM EDT [facility] Blood Venous blood specimen / Unknown Venipuncture / Unknown 04/27/2025 4:31 PM EDT 04/27/2025 4:31 PM EDT Tomasa JONES LAB BLOOD ORDERABLES Final R esult [facility] [address] [place] [address], [place] [phone] * External Mammogram Report (10/03/2024) Anatomical Region Laterality Modality Mammography Provider Gabriel Onbase IMG BI PROCEDURES Final Result * Depression Screening (07/16/2023) [facility] Depression Screening Abstracted Historical Provider HEALTH MAINTENANCE Final Result * Lipid panel (02/25/2022) [facility] LDL/HDL Ratio 3 0 - 4 Triglycerides 87 0 - 150 mg/dL Cholesterol 163 0 - 200 mg/dL HDL 51 >=40 mg/dL LDL Cholesterol 95 0 - 100 mg/dL Blood Venous blood specimen / Unknown Historical Provider LAB BLOOD ORDERABLES Sujatha l Result * Pap Smear (02/11/2022) Pathologist [facility] Pap smear No Interpretation , Abstracted Historical Provider HEALTH MAINTENANCE Final Result from Last 3 Months or Most Recently Relevant to Health Maintenance Insurance [facility] [place] - [place] Care Teams Plant And Instrument Engineer Relationship Specialty Start Date End Date Matt Weller MD PCP - General Internal Medicine 10/25/19
== END ==
LOC: HO.SL 12:43
PROVIDERS: PCP Internal Medicine; Visit Provider Nurse Practitioner Family
DX: R40.0 Somnolence (principal); R06.83 Snoring
CPT/HCPCS: 95806

== ENCOUNTER → 2025-06-19 12:55 | Outpatient (BNV) | payer OTHER, SELFPAY | PROVIDERS: PCP Internal Medicine; Visit Provider Internal Medicine | DX: R06.83 Snoring (principal) | CPT/HCPCS: 95806 ==

== ENCOUNTER 2025-06-26 15:47 | Outpatient (REF) | payer OTHER, SELFPAY ==
--- NOTE | 2025-06-26 15:52 | PFT_ITS ---
Indication: Asthma Spirometry FEV1 to FVC 89%; FEV1 3.03 L; FVC 3.4 L. No significant response to bronchodilators noted. Lung Volumes Total lung capacity 89% predicted; residual volume 78% Diffusion Capacity 102% predicted Methacholine Challenge [] Flow Volume Loops Normal in appearance MVV 102% predicted Comparisons None Interpretation No obstructive nor restrictive ventilatory defects identified. No significant response to bronchodilators noted. Normal lung volumes and normal diffusing capacity. If asthma is in the differential methacholine challenge may be helpful in assessing for hyperreactive airways. Clinical correlation warranted. MTDD
[2025-06-26 16:32] VITALS: PULSE 100; O2SAT 99
--- OUTSIDE RECORDS SUMMARY | 2025-06-26 20:48 | XMS_ITS | Clinical Summary ---
Author Organization [facility] Address [address] [address] Phone Care Team Providers Care Negative Notcher Name Role Phone Sherry Han NP Primary [...] topic Medical Devices Not on file Insurance [facility] Care Teams Negative Notcher Relationship Specialty Start Date End Date Sherry Han NP [address] [place] [id number] PCP - General Nurse Practitioner 01/28/24 Additional Source Comments The information contained in this document represents components of the legal health record. It is not the complete legal health record.[facility]
--- OUTSIDE RECORDS SUMMARY | 2025-06-26 20:48 | XMS_ITS ---
Author Name [facility] Organization Unknown Care Team Organization Name Specialty Phone Email Start Date End Da te [facility] Termed, PROVIDER Primary Care 06/09/202304/06 [facility] Marleen Rios Primary Care 02/12/202304/06 [facility] Ana Luisa Castro Primary Care 07/14/20222023
--- OUTSIDE RECORDS SUMMARY | 2025-06-26 20:48 | XMS_ITS | Encounter Summary ---
Author Organization [facility] Address [address] [address] Phone Care Team Providers Care Sketch Maker Name Role Phone Sherry Han NP Primary Care Provider [phone] Encounter Details Date Type Department Care Team (Late st Contact Info) Description 01/28/2024 Procedure Pass [facility], Ct Scan - [address] [address] Social History Tobacco Use Types Packs/Day Years [...] 4:50 PM EDT Davis Emery, BRENNEN * [place] Suicide Severity Rating Scale (Screener/Recent Self-Report) Question [...] on filedocumented in this encounter Care Teams Sketch Maker Relationship Specialty Start Date End Date Sherry Han NP [address] [place] [id number] PCP - General Nurse Practitioner 01/28/24 documented as of this encounter Additional Source Comments The information contained in this document represents components of the legal health record. It is not the complete legal health record.[facility]
--- OUTSIDE RECORDS SUMMARY | 2025-06-26 20:48 | XMS_ITS | Clinical Summary ---
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.] Care Team (Late st Contact Info) Description 06/27/2025 9:45 AM EDT Office Visit Bariatric Surgery - [address] [place] [phone] Tomasa Beth PA [address] [place] [phone] 07/27/2025 8:45 AM EST Office Visit Internal Medicine - [address] [phone] Lakshmi Posada, LUZ [address] [place] [address] Health Maintenance Due Date Last Done Comments [...] 05/01/2025 3:19 PM EDT [facility] Cockroach, Algerian, IgE <0.10 <0.10 kU/L 05/01/2025 3:19 PM EDT [facility] Cockroach, Algerian Class CLASS 0 05/01/2025 3:19 PM EDT [facility] [place], IgE <0.10 <0.10 kU/L 05/01/2025 3:19 PM EDT [facility] [place] Class CLASS 0 05/01/20 3:19 PM EDT [...] 05/01/2025 3:19 PM EDT [facility] [place] ([place]), IgE <0.10 <0.10 kU/L 05/01/2025 3:19 PM EDT [facility] [place] ([place]) Class CLASS 0 05/01/2025 3:19 PM EDT [facility] Peculiar Syc., [place], IgE <0.10 <0.10 kU/L 05/01/2025 3:19 PM EDT [facility] [place] Peculiar Syc, [place]ane Class CLASS 0 05/01/2025 [...] 0 05/01/2025 3:19 PM EDT [facility] [place], IgE <0.10 <0.10 kU/L 05/01/2025 3:19 PM EDT [facility] [place] Class CLASS 0 05/01/2025 3:19 PM EDT [facility] [place], IgE <0.10 <0.10 kU/L 05/01/2025 3:19 PM EDT [facility] [place] Class CLASS 0 05/01/2025 3:19 PM EDT [...] 05/01/2025 3:19 PM EDT [facility] Sheep [place], IgE <0.10 <0.10 kU/L 05/01/2025 3:19 PM EDT [facility] [place] Class CLASS 0 2024 3:19 PM EDT [facility] [place], IgE <0.10 <0.10 kU/L 05/01/2025 3:19 PM EDT [facility] [place] Class CLASS 0 05/01 3:19 PM EDT [facility] [place], IgE <0.10 <0.10 kU/L 05/01/2025 3:19 PM EDT [facility] [place] Class CLASS 0 025 3:19 PM [...] >100.0 Very High Level Test performed at [facility], [address], [place] [address] Rosalba Gerber MD, PhD - Morale Officer Blood Venous blood specimen / Unknown Venipuncture / Unknown 04/27/2025 4:31 PM EDT 04/27/2025 4:31 PM EDT us Fay Santos NP LAB BLOOD ORDERABLES Final Result [facility] [address] [place] [address] * (ABNORMAL) Iron and TIBC (04/27/2025 4:31 PM EDT) Iron 47 40 - 150 mcg/dL LAB CHEMISTRY METHOD 04/27/2025 6:55 PM EDT [facility] TIBC 234(L) 250 - 450 mcg/dL LAB CHEMISTRY METHOD 04/27/2025 6:55 PM EDT [facility] Iron Saturation 20 15 - 50 % LAB CHEMISTRY METHOD 04/27/2025 6:55 PM EDT [facility] Blood Venous blood specimen / Unknown Venipuncture / Unknown 04/27/2025 4:31 PM EDT 04/27/2025 4:31 PM EDT Tomasa JONES LAB BLOOD ORDERABLES Final R esult Performing Organization Address City/[facility]/ZIP Co de Phone Number [facility] [address] [place] [address], [place] [phone] * (ABNORMAL) Zinc (04/27/2025 4:31 PM EDT) [facility] Zinc 48(L) 60 - 130 ug/dL 04/30/2025 12:47 PM EDT [facility] Comment: Elevated results may be due to sample collected in a non-certified trace element-free tube. This test was developed and the performance characteristics determined by [facility]. It has not been cleared or approved by the FDA. The laboratory is regulated under CLIA as qualified to perform high-complexity testing. This test is used for patient testing purposes. It should not be regarded as investigational or for research. Test performed at [facility], [address] , [place] [address] Rosalba Gerber MD, PhD - Morale Officer Blood Venous blood specimen / Unknown Venipuncture / Unknown 04/27/2025 4:31 PM EDT 04/27/2025 4:31 PM EDT Tomasa JONES LAB BLOOD ORDERABLES Final R esult [facility] [address] [place] [address] * Selenium serum (04/27/2025 4:31 PM EDT) [...] potential heavy metal sources. Refer to the [employer] Directory of Services for proper specimen collection information. This test was developed and its analytical performance characteristics have been determined by [facility] [place]. It has not been cleared or approved by the U.S. Food and Drug Administration. This assay has been validated pursuant to the CLIA regulations and is used for clinical purposes. Test Performed by [facility], [employer] [facility], [address] [place] [address] Khoi Kam M.D., Ph.D., Director of Laboratories , CLIA [id number] Blood Venous blood specimen / Unknown Venipuncture / Unknown 04/27/2025 4:31 PM EDT 04/27/2025 4:31 PM EDT Tomasa JONES LAB BLOOD ORDERABLES Final R esult [facility] [address] [place] [address] * Vitamin D 25 hydroxy (04/27/2025 4:31 PM EDT) Vit D, 25-Hydroxy 35.4 30.0 - 80.0 ng/mL LAB CHEMISTRY METHOD 04/27/2025 7:00 PM EDT [facility] Blood Venous blood specimen / Unknown Venipuncture / Unknown 04/27/2025 4:31 PM EDT 04/27/2025 4:31 PM EDT Tomasa JONES LAB BLOOD ORDERABLES Final R esult Performing Organization Address [facility]/ZIP Co de Phone Number [facility] [address] [place] [address], * (ABNORMAL) Hepatitis B surface antibody (04/27/2025 4:31 PM EDT) [facility] Hepatitis B Surface Ab Positive (A) Negative LAB CHEMISTRY METHOD 04/27/2025 7:01 PM EDT [facility] Hepatitis B Surface Ab Quantitative 107.3 mIU/mL LAB CHEMISTRY METHOD 04/27/2025 7:01 PM EDT [facility] Blood Venous blood specimen / Unknown Venipuncture / Unknown 04/27/2025 4:31 PM EDT 04/27/2025 4:31 PM EDT Narrative [facility] - 04/27/2025 7:01 PM EDT >=10 mIU/mL is considered to be consistent with immunity. Lakshmi Orta NP LAB BLOOD ORDERABLES Final R esult Performing Organization Address [facility] Co de Phone Number [facility] [address] [place] [address], * (ABNORMAL) Vitamin B1 (04/27/2025 4:31 PM EDT) [facility] Vitamin B1 Whole Blood 36(L) 38 - 122 ug/L 05/02/2025 8:12 AM EDT [facility] Comment: This test was developed and the performance characteristics determined by [facility]. It has not been cleared or approved by the FDA. The laboratory is regulated under CLIA as qualified to perform high-complexity testing. This test is used for patient testing purposes. It should not be regarded as investigational or for research. Test performed at [facility], [address] , [place] [address] Rosalba Gerber MD, PhD - Morale Officer Blood Venous blood specimen / Unknown Venipuncture / Unknown 04/27/2025 4:31 PM EDT 04/27/2025 4:31 PM EDT Tomasa JONES LAB BLOOD ORDERABLES Final R esult Performing Organization Address [facility]/ZIP Co de Phone Number [facility] [address] [place] [address] * (ABNORMAL) Vitamin B6 (04/27/2025 4:31 PM EDT) Pathologist [facility] Vitamin B6 (Pyridoxine) Level 4(L) 5 - 50 ug/L 05/01/2025 12:50 PM EDT [facility] Comment: This test was developed and the performance characteristics determined by [facility]. It has not been cleared or approved by the FDA. The laboratory is regulated under CLIA as qualified to perform high-complexity testing. This test is used for patient testing purposes. It should not be regarded as investigational or for research. Test performed at [facility], [address] , [place] [address] Rosalba Gerber MD, PhD - Morale Officer Blood Venous blood specimen / Unknown Venipuncture / Unknown 04/27/2025 4:31 PM EDT 04/27/2025 4:31 PM EDT Tomasa JONES LAB BLOOD ORDERABLES Final R esult Performing Organization Address City/[facility]/ZIP Co de Phone Number [facility] [address] [place] [address] * Immunoglobulin IgE (04/27/2025 4:31 PM EDT) Pathologist [facility] IgE 2.8 0.0 - 158.0 I Unit/mL LAB CHEMISTRY METHOD 04/27/2025 7:00 PM EDT [facility] Blood Venous blood specimen / Unknown Venipuncture / Unknown 04/27/2025 4:31 PM EDT 04/27/2025 4:31 PM EDT Fay Santos NP LAB BLOOD ORDERABLES Final Result Performing Organization Address [facility]/ZIP Co de Phone Number [facility] [address] [place] [address], [place] [phone] * (ABNORMAL) Folate (04/27/2025 4:31 PM EDT) [facility] Folate 0.9(L) 2.8 - 17.0 ng/ml LAB CHEMISTRY METHOD 04/27/2025 6:58 PM EDT [facility] Blood Venous blood specimen / Unknown Venipuncture / Unknown 04/27/2025 4:31 PM EDT 04/27/2025 4:31 PM EDT Tomasa JONES LAB BLOOD ORDERABLES Final R esult Performing Organization Address [facility] Co de Phone Number [facility] [address] [place] [address], [place] [phone] * Vitamin B12 (04/27/2025 4:31 PM EDT) [facility] Vitamin B-12 539 250 - 900 pcg/mL LAB CHEMISTRY METHOD 04/27/2025 6:55 PM EDT [facility] Blood Venous blood specimen / Unknown Venipuncture / Unknown 04/27/2025 4:31 PM EDT 04/27/2025 4:31 PM EDT Tomasa JONES LAB BLOOD ORDERABLES Final R esult Performing Organization Address [facility]/ZIP Co de Phone Number [facility] [address] [place] [address], [place] [phone] * Comprehensive metabolic panel (04/27/2025 4:31 PM EDT) [facility] Sodium 134 133 - 145 mmol/L LAB CHEMISTRY METHOD 04/27/2025 6:55 PM EDT [facility] Potassium 4.7 3.5 - 5.5 mmol/L LAB CHEMISTRY METHOD 04/27/2025 6:55 PM [facility] Chloride 102 96 - 110 mmol/L LAB CHEMISTRY METHOD 04/27/2025 6:55 PM [facility] CO2 28 21 - 32 mmol/L LAB CHEMISTRY METHOD 04/27/2025 6:55 PM [facility] Anion Gap 4 3 - 11 LAB CHEMISTRY METHOD 04/27/2025 6:55 PM [facility] Glucose 93 70 - 100 mg/dL LAB CHEMISTRY METHOD 04/27/2025 6:55 PM [facility] BUN 9 5 - 25 mg/dL LAB CHEMISTRY METHOD 04/27/2025 6:55 PM [facility] Creatinine 0.89 0.50 - 1.10 mg/dL LAB CHEMISTRY METHOD 04/27/2025 6:55 PM [facility] eGFR 82 >=60 mL/min/1. 73m2 LAB CHEMISTRY METHOD 04/27/2025 6:55 PM [facility] Comment:Calculation based on the Chronic Kidney Disease Epidemiology Collaboration (CKD-EPI) equation refit without adjustment for race. BUN/Creatinine Ratio 10.1 LAB CHEMISTRY METHOD 04/27/2025 6:55 PM [facility] Calcium 9.3 8.5 - 10.5 mg/dL LAB CHEMISTRY METHOD 04/27/2025 6:55 PM [facility] AST (SGOT) 24 10 - 42 unit/L LAB CHEMISTRY METHOD 04/27/2025 6:55 PM [facility] ALT (SGPT) 29 10 - 60 unit/L LAB CHEMISTRY METHOD 04/27/2025 6:55 PM [facility] Alkaline Phosphatase 70 42 - 121 unit/L LAB CHEMISTRY METHOD 04/27/2025 6:55 PM [facility] Total Protein 6.1 6.0 - 8.0 g/dL LAB CHEMISTRY METHOD 04/27/2025 6:55 PM EDT [facility] Albumin 3.8 3.2 - 5.0 g/dL LAB CHEMISTRY METHOD 04/27/2025 6:55 PM EDT [facility] Total Bilirubin 0.6 0.0 - 1.4 mg/dL LAB CHEMISTRY METHOD 04/27/2025 6:55 PM EDT [facility] Blood Venous blood specimen / Unknown Venipuncture / Unknown 04/27/2025 4:31 PM EDT 04/27/2025 4:31 PM EDT Tomasa JONES LAB BLOOD ORDERABLES Final R esult [facility] [address] [place] [address], [place] [phone] * External Mammogram Report (10/03/2024) Anatomical Region Laterality Modality Mammography Provider [employer] IMG BI PROCEDURES Final Result * Depression Screening (07/16/2023) Pathologist [facility] Depression Screening Abstracted Historical Provider HEALTH MAINTENANCE Final Result * Lipid panel (02/25/2022) Pathologist [facility] LDL/HDL Ratio 3 0 - 4 Triglycerides 87 0 - 150 mg/dL Cholesterol 163 0 - 200 mg/dL HDL 51 >=40 mg/dL LDL Cholesterol 95 0 - 100 mg/dL Blood Venous blood specimen / Unknown Historical Provider LAB BLOOD ORDERABLES Sujatha l Result * Pap Smear (02/11/2022) Pathologist [facility] Pap smear No Interpretation , Abstracted Historical Provider HEALTH MAINTENANCE Final Result from Last 3 Months or Most Recently Relevant to Health Maintenance Insurance [facility] MEDICAID - [place] Care Teams Sas Etl Developer Relationship Specialty Start Date End Date Matt Weller MD PCP - General Internal Medicine 10/25/19
== END 2025-06-26 15:48 | disposition home or self-care (01) ==
LOC: HO.RESP 15:47
PROVIDERS: PCP Internal Medicine; Visit Provider Nurse Practitioner Family
DX: J45.909 Unspecified asthma, uncomplicated (principal)
CPT/HCPCS: 94060; 94640; 94727; 94729

== ENCOUNTER → 2025-06-26 15:52 | Outpatient (BNV) | payer OTHER, SELFPAY | PROVIDERS: PCP Internal Medicine; Visit Provider Hospitalist | DX: J45.909 Unspecified asthma, uncomplicated (principal) | CPT/HCPCS: 94060; 94727; 94729 ==

== ENCOUNTER 2025-07-17 13:12 | Outpatient (AMB) | payer OTHER, SELFPAY ==
[2025-07-17 13:14] VITALS: BP 130/88; PULSE 95; O2SAT 99; BMI 29.0
--- NOTE | 2025-07-17 13:14 | MHC.OFFVIS ---
Vital Signs 07/17/25 13:14 Height 5 ft 3 in Weight 163 lb 8 oz BMI 29.0 BP 130/88 Blood Pressure Location Rt brachial Position Sitting Pulse 95 Pulse Source Pulse Oximeter Pulse Oximetry (%) 99 Oxygen Delivery Method Room Air Intake Visit Reasons: Asthma/ DENIS Allergies amoxicillin (AMOXICILLIN) Allergy (Intermediate, Unverified 07/17/25 13:19) PASSED OUT Penicillins (PENICILLINS) Allergy (Intermediate, Unverified 07/17/25 13:19) UNKNOWN Sulfa (Sulfonamide Antibiotics) (SULFA (SULFONAMIDE ANTIBIOTICS)) Allergy (Intermediate, Unverified 07/17/25 13:19) HIVES HPI HPI Asthma/ DENIS: Details: Leona is a pleasant 45 year old female, never smoker, with underlying asthma and history of mild DENIS. She was initially referred by PCP for further management for DENIS and asthma. Since last visit respiratory symptoms have been well controlled on Pulmicort 1 inhalation b.i.d., rarely requiring albuterol MDI. She continues to work towards weight loss with the use of Zepbound, diet changes and increased activity. She has lost well over 100 lbs since July. She denies any visits to urgent care hospitalizations related to respiratory distress since last visit. Today she presents to reviewed PFT, home sleep study in RAST testing. [facility] Social History (Updated 03/21/25 @ 14:26 by Alva Orozco [facility]) Patient Tobacco Use Status: Never used Tobacco Assessment & Plan Assessment & Plan (1) Asthma: Code(s): J45.909 - Unspecified asthma, uncomplicated Category: Medical (2) Environmental allergies: Code(s): Z91.09 - Other allergy status, other than to drugs and biological substances Category: Medical Plan Reviewed PFT which revealed no obstructive nor restrictive ventilatory defects identified. No significant response to bronchodilators noted, except in small to medium airways. Normal lung volumes and slightly elevated DLCO. Reviewed home sleep study which was negative for DENIS and nocturnal hypoxemia. RAST + DM and Cat. At this time, patient well controlled on pulmicort, advised to to continue. She is aware to call if symptoms change. All questions were answered and patient is in in agreement of plan. Will follow up in 6 months or sooner if needed. Coding Level of Care Code Est Pt Level 4 (66702) Diagnoses Asthma J45.909 Environmental allergies Z91.09
--- OUTSIDE RECORDS SUMMARY | 2025-07-17 14:55 | XMS_ITS | Encounter Summary ---
Author Organization [facility] Address [address] [address] Phone Care Team Providers Care Shore Worker Name Role Phone Sherry Han NP Primary Care Provider [phone] Encounter Details Date Type Department Care Team (Late st Contact Info) Description 01/28/2024 Procedure Pass [facility], Ct Scan - [address] [address] Social History Tobacco Use Types Packs/Day Years [...] 4:50 PM EDT Davis Emery, BRENNEN * [place] Suicide Severity Rating Scale (Screener/Recent Self-Report) Question [...] on filedocumented in this encounter Care Teams Shore Worker Relationship Specialty Start Date End Date Sherry Han NP [address] [place] [phone] PCP - General Nurse Practitioner 01/28/24 documented as of this encounter Additional Source Comments The information contained in this document represents components of the legal health record. It is not the complete legal health record.[facility]
--- OUTSIDE RECORDS SUMMARY | 2025-07-17 14:55 | XMS_ITS | Clinical Summary ---
Author Organization [facility] Address [address] [address] Phone Care Team Providers Care Chief Operator Lock Tender Name Role Phone Sherry Han NP Primary [...] patient's age to complete this topic IPV VACCINES Aged Out No longer eligi ble based on patient's age to complete this topic MENINGOCOCCAL VACCINES (ACWY) Aged Out No longer eligible based on patient's age to complete this topic MENINGOCOCCAL VACCINES (B) Aged Out N o longer eligible based on patient's age to complete this topic Medical Devices Not on file [facility] Member Subscriber Plan / Payer (Ef fective 2023-Present) Name:Leona Smith Relation to Subscriber:Self Name:Leona Smith Payer ID:Not on file Type:[facility] Address: [place] [id number] [facility] Care Teams Chief Operator Lock Tender Relationship Specialty Start Date End Date Sherry Han NP [address] [place] [phone] PCP - General Nurse Practitioner 01/28/24 Additional Source Comments The information contained in this document represents components of the legal health record. It is not the complete legal health record.[facility]
--- OUTSIDE RECORDS SUMMARY | 2025-07-17 14:55 | XMS_ITS | Clinical Summary ---
Author Organization 175 [facility] Address [address] [place] [address] Phone Care Team Providers Care Bladder Trimmer Name Role Phone Gwen Chinchilla MD Primary Care Provider [phone] Allergies Active Allergy Reactions Criticality Noted Date Comments Amoxicillin 11/03/2019 Penicillins 05/17/2013 Sulfa (Sulfonamide Antibiotics) 05/07 Medications multivitamin (DAILY VITAMIN ORAL) VITAMIN D OR Take by mouth Active buPROPion SR (WELLBUTRIN SR) 200 mg 12 hr tablet TAKE 1 TABLET BY MOUTH TWICE A DAY 09/09/19 23 Active hydrOXYzine HCL (ATARAX) 10 mg tablet Take 1 Tablet by mouth every 8 hours as needed for Anxiety. 08/16/20 23 Active lisdexamfetami ne (VYVANSE) 30 mg capsule Take 1 Capsule by mouth every morning. Active albuterol HFA (PROAIR HFA ; PROVENTIL HFA ; VENTOLIN HFA) 90 mcg/actuation inhaler Inhale 2 puffs by mouth every 4 (four) hours if needed for wheezing or shortness of breath. 6.7 g 09/01/20 24 Active EPINEPHrine (EpiPen 2-Alexsander) 0.3 mg/0.3 mL injection Inject 0.3 mL (0.3 mg total) into the thigh if needed for anaphylaxis. 1 each 09/01/20 24 Active budesonide (PULMICORT) 90 mcg/actuation inhaler Inhale 1 puff by mouth 2 (two) times a day. Rinse mouth with water after use to reduce aftertaste and incidence of candidiasis. Do not swallow. 3 each 1 09/04/20 24 Active BinaxNOW COVID-19 Ag Self Test kit TEST DIRECTED TODAY 06/20/20 Active ergocalciferol (CALCIDOL, VIT D-2,) 200 mcg/mL (8,000 unit/mL) drops Take 0.5 mL (4,000 Units total) by mouth 1 (one) time each day. Active fluticasone propionate (FLONASE) 50 mcg/actuation nasal spray Administer 2 sprays into each nostril 1 (one) time each day. Shake gently. Before first use, prime pump. After use, clean tip and replace cap. 16 g 5 12/26/19 25 026 Active B complex-vitami n C-folic acid (NEPHROCAPS) 1 mg capsuleIndicat ions:Class 1 obesity due to excess calories with body mass index (BMI) of 33.0 to 33.9 in adult, unspecified whether serious comorbidity present Take 1 capsule by mouth 1 (one) time each day. 30 capsule 11 05/11/20 25 026 Active levothyroxine (SYNTHROID, LEVOTHROID) 88 mcg tablet Take 1 tablet (88 mcg total) by mouth 1 (one) time each day. 90 tablet 1 07/06/20 25 Active cetirizine (ZyrTEC) 10 mg tablet Take 1 tablet (10 mg total) by mouth 1 (one) time each day. 90 tablet 1 07/06/20 25 Active tirzepatide, weight loss, (Zepbound) 15 mg/0.5 mL injectionIndic ations:Overwei ght (BMI 25.0-29.9) Inject 0.5 mL (15 mg total) under the skin every 7 (seven) days. 2 mL 07/06/20 25 025 Active levothyroxine (SYNTHROID, LEVOTHROID) 88 mcg tablet Take 1 tablet (88 mcg total) by mouth 1 (one) time each day. 90 tablet 1 12/26/19 25 025 Discontinued(Re order) cetirizine (ZyrTEC) 10 mg tablet Take 1 tablet (10 mg total) by mouth 1 (one) time each day. 90 tablet 1 12/26/19 25 025 Discontinued(Re order) tirzepatide, weight loss, (Zepbound) 15 mg/0.5 mL injectionIndic ations:Class 1 obesity due to excess calories with body mass index (BMI) of 33.0 to 33.9 in adult, unspecified whether serious comorbidity present Inject 0.5 mL (15 mg total) under the skin every 7 (seven) days. 2 mL 06/06/20 25 025 Discontinued tirzepatide, weight loss, (Zepbound) 15 mg/0.5 mL injectionIndic ations:Overwei ght (BMI 25.0-29.9) Inject 0.5 mL (15 mg total) under the skin every 7 (seven) days. 6 mL 06/27/20 25 025 Discontinued(Re order) tirzepatide, weight loss, (Zepbound) 15 mg/0.5 mL injectionIndic ations:Overwei ght (BMI 25.0-29.9) Inject 0.5 mL (15 mg total) under the skin every 7 (seven) days. 6 mL 1 07/02/20 25 025 Discontinued(Re order) tirzepatide, weight loss, (Zepbound) 15 mg/0.5 mL injectionIndic ations:Overwei ght (BMI 25.0-29.9) Inject 0.5 mL (15 mg total) under the skin every 7 (seven) days. 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/2024): Sees [facility] Endocrinology Vitamin D deficiency 12/14/2016 Asthma 12/11/2016 Resolved Problems Problem Noted Date Diagnosed Date Resolved Date Obesity (BMI 35.0-39.9 without comorbidity) 08/09/2024 03/28/2025 Encounters Date Type Department Care Team Description 06/27/2025 9:45 AM EDT Office Visit Bariatric Surgery - [address] [address] Tomasa Beth PA Overweight (BMI 25.0-29.9) (Primary Dx) from Last 3 Months Immunizations [...] Site/Laterality Comments NASAL SEPTUM SURGERY 2008 PROCEDURE: SC SEPTOPLASTY/SUBMUCOUS RESECJ W/WO CARTILAGE GRF TONSILLECTOMY 2008 [...] Sign Reading Time Taken Comments Blood Pressure 134/80 06/27/2025 9:50 AM EDT Pulse 87 06/27/2025 9:50 AM EDT Temperature 36.6 C (97.8 F) 06/27/2025 9:50 AM EDT Respiratory Rate - - Oxygen Saturation - - Inhaled Oxygen Concentration - - Weight 76.2 kg (168 lb) 06/27/2025 9:50 AM EDT Height 160 cm (5' 3 ) 06/27/2025 9:50 AM EDT Body Mass Index 29.76 06/27/2025 9:50 AM EDT Plan of Treatment Upcoming Encounters Date Type Department Care Team (Late st Contact Info) Description 07/27/2025 8:45 AM EST Office Visit Internal Medicine - [facility] [address] [place] [address] Lakshmi Posada, LUZ [address] [place] [address] 12/03/2025 3:15 PM EDT Office Visit Bariatric Surgery - [place] [address] [facility] [facility] [address] [place] [id number] Tomasa Beth PA [address] [place] [phone] Health Maintenance Due Date Last Done Comments Colorectal Cancer Screening: Colonoscopy 1980 Hepatitis B Vaccines (1 of 3 - 19+ 3-dose series) 1999 HIV Screening 08/15/2022 Hepatitis C Screening 08/15/2022 Social Influencers of Health Screening 08/15/2022 Depression Screening 09/06/2024 07/16/2023 Cervical Cancer Screening: Pap Smear 02/11/2025 02/11/2022 Breast Cancer Screening 10/03/2026 10/03/2024 Cholesterol Screening (Lipid Panel) 02/25/2027 02/25/2022 DTaP,Tdap,and Td Vaccines (3 - Td or Tdap) 07/16/2033 07/16/2023, 07/14/2013 RSV Immunization Adult Patients (1 - 1-dose 75+ series) 2055 Pneumococcal Vaccine: Pediatrics (0 to 5 Years) and At-Risk Patients (6 to 49 Years) Completed 08/20/2022 HPV Vaccines Completed 10/16/2024, 11/04, 09/03/2023 COVID-19 Vaccine Completed 06/12/2025, , 09/03/2023, Additional history exists Influenza Vaccine Completed 06/12/2025, , 07/16/2022, Additional history exists HIB Vaccines Aged Out No longer eligi [...] 1 CT,[place] IgE (04/27/2025 4:31 PM EDT) [facility] Alternaria alternata, IgE <0.10 <0.10 kU/L 05/01/2025 [...] 05/01/2025 3:19 PM EDT [facility] Cockroach, [place], IgE <0.10 <0.10 kU/L 05/01/2025 3:19 PM EDT [facility] Cockroach, [place] Class CLASS 0 05/01/2025 3:19 PM EDT [facility] [place], IgE <0.10 <0.10 kU/L 05/01/2025 3:19 PM EDT [facility] [place] Class CLASS 0 05/01/20 3:19 PM EDT [...] 05/01/2025 3:19 PM EDT [facility] [place] ([place]), IgE <0.10 <0.10 kU/L 05/01/2025 3:19 PM EDT [facility] Maple ([place]) Class CLASS 0 05/01/2025 3:19 PM EDT [facility] [place], IgE <0.10 <0.10 kU/L 05/01/2025 3:19 PM EDT [facility] [place], [place] Class CLASS 0 05/01/2025 [...] 0 05/01/2025 3:19 PM EDT [facility] [place], IgE <0.10 <0.10 kU/L 05/01/2025 3:19 PM EDT [facility] [place] Class CLASS 0 05/01/2025 3:19 PM EDT [facility] [place], IgE <0.10 <0.10 kU/L 05/01/2025 3:19 PM EDT [facility] [place] Class CLASS 0 05/01/2025 3:19 PM EDT [...] 05/01/2025 3:19 PM EDT [facility] [place], IgE <0.10 <0.10 kU/L 05/01/2025 3:19 PM EDT [facility] [place] Class CLASS 0 2024 3:19 PM EDT [facility] [place], IgE <0.10 <0.10 kU/L 05/01/2025 3:19 PM EDT [facility] [place] Class CLASS 0 05/01 3:19 PM EDT [facility] [place], IgE <0.10 <0.10 kU/L 05/01/2025 3:19 PM EDT [facility] [place] Class CLASS 0 025 3:19 PM [...] >100.0 Very High Level Test performed at [facility], [address] , [place] [address] Rosalba Gerber MD, PhD - Community Relations Liaison Blood Venous blood specimen / Unknown Venipuncture / Unknown 04/27/2025 4:31 PM EDT 04/27/2025 4:31 PM EDT us Fay Santos NP LAB BLOOD ORDERABLES Final Result Performing Organization Address City/[facility]/ZIP Co de Phone Number [facility] [address] [place] [address] * (ABNORMAL) Iron and TIBC (04/27/2025 4:31 PM EDT) [facility] Signature Iron 47 40 - 150 mcg/dL LAB CHEMISTRY METHOD 04/27/2025 6:55 PM EDT [facility] TIBC 234(L) 250 - 450 mcg/dL LAB CHEMISTRY METHOD 04/27/2025 6:55 PM EDT [facility] Iron Saturation 20 15 - 50 % LAB CHEMISTRY METHOD 04/27/2025 6:55 PM EDT [facility] Blood Venous blood specimen / Unknown Venipuncture / Unknown 04/27/2025 4:31 PM EDT 04/27/2025 4:31 PM EDT us Tomasa JONES LAB BLOOD ORDERABLES Final R esult Performing Organization Address City/[facility]/ZIP Co de Phone Number [facility] [address] [place] [address], [place] [phone] * (ABNORMAL) Zinc (04/27/2025 4:31 PM EDT) Zinc 48(L) 60 - 130 ug/dL 04/30/2025 12:47 PM EDT [facility] Comment: Elevated results may be due to sample collected in a non-certified trace element-free tube. This test was developed and the performance characteristics determined by [facility]. It has not been cleared or approved by the FDA. The laboratory is regulated under CLIA as qualified to perform high-complexity testing. This test is used for patient testing purposes. It should not be regarded as investigational or for research. Test performed at [facility], [address] , [place] [address] Rosalba Gerber MD, PhD - Community Relations Liaison Blood Venous blood specimen / Unknown Venipuncture / Unknown 04/27/2025 4:31 PM EDT 04/27/2025 4:31 PM EDT Tomasa JONES LAB BLOOD ORDERABLES Final R esult [facility] [address] [place] [address] * Selenium serum (04/27/2025 4:31 PM EDT) Selenium 106 63 - 160 mcg/L 05/01/2025 5:00 PM EDT [facility] Comment: Testing was performed on a specimen submitted in a tube which has not been certified to be free of trace elements. Repeat testing on a specimen collected in a trace element tube is recommended prior to initiation of remedial action or environmental investigation of potential heavy metal sources. Refer to the [employer] Directory of Services for proper specimen collection information. This test was developed and its analytical performance characteristics have been determined by [facility] [place], [place]. It has not been cleared or approved by the U.S. Food and Drug Administration. This assay has been validated pursuant to the CLIA regulations and is used for clinical purposes. Test Performed by Garett Dupree, [facility], [address] [place] [address], [place] Khoi Kam M.D., Ph.D., Director of Laboratories , [facility] [id number] Blood Venous blood specimen / Unknown Venipuncture / Unknown 04/27/2025 4:31 PM EDT 04/27/2025 4:31 PM EDT Tomasa JONES LAB BLOOD ORDERABLES Final R esult [facility] [address] [place] [id number] * Vitamin D 25 hydroxy (04/27/2025 4:31 PM EDT) Pathologist [facility] Vit D, 25-Hydroxy 35.4 30.0 - 80.0 ng/mL LAB CHEMISTRY METHOD 04/27/2025 7:00 PM EDT [facility] Blood Venous blood specimen / Unknown Venipuncture / Unknown 04/27/2025 4:31 PM EDT 04/27/2025 4:31 PM EDT Tomasa JONES LAB BLOOD ORDERABLES Final R esult [facility] [address] [place] [address], * (ABNORMAL) Hepatitis B surface antibody (04/27/2025 4:31 PM EDT) Pathologist [facility] Hepatitis B Surface Ab Positive (A) Negative LAB CHEMISTRY METHOD 04/27/2025 7:01 PM EDT [facility] Hepatitis B Surface Ab Quantitative 107.3 mIU/mL LAB CHEMISTRY METHOD 04/27/2025 7:01 PM EDT [facility] Blood Venous blood specimen / Unknown Venipuncture / Unknown 04/27/2025 4:31 PM EDT 04/27/2025 4:31 PM EDT Narrative [facility] - 04/27/2025 7:01 PM EDT >=10 mIU/mL is considered to be consistent with immunity. Lakshmi Orta NP LAB BLOOD ORDERABLES Final R esult Performing Organization Address [facility]/ZIP Co de Phone Number [facility] [address] [place] [address], * (ABNORMAL) Vitamin B1 (04/27/2025 4:31 PM EDT) Vitamin B1 Whole Blood 36(L) 38 - 122 ug/L 05/02/2025 8:12 AM EDT [facility] Comment: This test was developed [...] performed at [facility], [address] [place] [address] Rosalba Gerber MD, PhD - Community Relations Liaison Blood Venous blood specimen / Unknown Venipuncture / Unknown 04/27/2025 4:31 PM EDT 04/27/2025 4:31 PM EDT Tomasa JONES LAB BLOOD ORDERABLES Final R esult Performing Organization Address City/[facility]/ZIP Co de Phone Number [facility] [address] [place] [address] * (ABNORMAL) Vitamin B6 (04/27/2025 4:31 PM EDT) Vitamin B6 (Pyridoxine) Level 4(L) 5 - 50 ug/L 05/01/2025 12:50 PM EDT [facility] Comment: This test was developed and the performance characteristics determined by [facility]. It has not been cleared or approved by the FDA. The laboratory is regulated under CLIA as qualified to perform high-complexity testing. This test is used for patient testing purposes. It should not be regarded as investigational or for research. Test performed at [facility], [address], [place] [address] Rosalba Gerber MD, PhD - Community Relations Liaison Blood Venous blood specimen / Unknown Venipuncture / Unknown 04/27/2025 4:31 PM EDT 04/27/2025 4:31 PM EDT Tomasa JONES LAB BLOOD ORDERABLES Final R esult [facility] [address] [place] [address] * Immunoglobulin IgE (04/27/2025 4:31 PM EDT) IgE 2.8 0.0 - 158.0 I Unit/mL LAB CHEMISTRY METHOD 04/27/2025 7:00 PM EDT [facility] Blood Venous blood specimen / Unknown Venipuncture / Unknown 04/27/2025 4:31 PM EDT 04/27/2025 4:31 PM EDT Fay Santos NP LAB BLOOD ORDERABLES Final Result Performing Organization Address City/[facility]/ZIP Co de Phone Number [facility] [address] [place] [address], [place] [phone] * (ABNORMAL) Folate (04/27/2025 4:31 PM EDT) Folate 0.9(L) 2.8 - 17.0 ng/ml LAB CHEMISTRY METHOD 04/27/2025 6:58 PM EDT [facility] Blood Venous blood specimen / Unknown Venipuncture / Unknown 04/27/2025 4:31 PM EDT 04/27/2025 4:31 PM EDT Tomasa JONES LAB BLOOD ORDERABLES Final R esult Performing Organization Address City/[facility]/ZIP Co de Phone Number [facility] [address] [place] [address], * Vitamin B12 (04/27/2025 4:31 PM EDT) [facility] Vitamin B-12 539 250 - 900 pcg/mL LAB CHEMISTRY METHOD 04/27/2025 6:55 PM EDT [facility] Blood Venous blood specimen / Unknown Venipuncture / Unknown 04/27/2025 4:31 PM EDT 04/27/2025 4:31 PM EDT Tomasa JONES LAB BLOOD ORDERABLES Final R esult Performing Organization Address [facility]/ZIP Co de Phone Number [facility] [address] [place] [address], * Comprehensive metabolic panel (04/27/2025 4:31 PM EDT) [facility] Sodium 134 133 - 145 mmol/L LAB CHEMISTRY METHOD 04/27/2025 6:55 PM EDT [facility] Potassium 4.7 3.5 - 5.5 mmol/L LAB CHEMISTRY METHOD 04/27/2025 6:55 PM T [facility] Chloride 102 96 - 110 mmol/L LAB CHEMISTRY METHOD 04/27/2025 6:55 PM EDT [facility] CO2 28 21 - 32 mmol/L LAB CHEMISTRY METHOD 04/27/2025 6:55 PM EDT [facility] Anion Gap 4 3 - 11 LAB CHEMISTRY METHOD 04/27/2025 6:[facility] Glucose 93 70 - 100 mg/dL LAB CHEMISTRY METHOD 04/27/2025 6:55 PM [facility] BUN 9 5 - 25 mg/dL LAB CHEMISTRY METHOD 04/27/2025 6:55 PM EDT [facility] Creatinine 0.89 0.50 - 1.10 mg/dL LAB CHEMISTRY METHOD 04/27/2025 6:55 PM EDT [facility] eGFR 82 >=60 mL/min/1. 73m2 LAB CHEMISTRY METHOD 04/27/2025 6:55 PM T [facility] Comment:Calculation based on the Chronic Kidney Disease Epidemiology Collaboration (CKD-EPI) equation refit without adjustment for race. BUN/Creatinine Ratio 10.1 LAB CHEMISTRY METHOD 04/27/2025 6:55 PM EDT [facility] Calcium 9.3 8.5 - 10.5 mg/dL LAB CHEMISTRY METHOD 04/27/2025 6:55 PM [facility] AST (SGOT) 24 10 - 42 unit/L LAB CHEMISTRY METHOD 04/27/2025 6:55 PM [facility] ALT (SGPT) 29 10 - 60 unit/L LAB CHEMISTRY METHOD 04/27/2025 6:55 PM T [facility] Alkaline Phosphatase 70 42 - 121 unit/L LAB CHEMISTRY METHOD 04/27/2025 6:55 PM T [facility] Total Protein 6.1 6.0 - 8.0 g/dL LAB CHEMISTRY METHOD 04/27/2025 6:55 PM [facility] Albumin 3.8 3.2 - 5.0 g/dL LAB CHEMISTRY METHOD 04/27/2025 6:55 PM [facility] Total Bilirubin 0.6 0.0 - 1.4 mg/dL LAB CHEMISTRY METHOD 04/27/2025 6:55 PM [facility] Blood Venous blood specimen / Unknown Venipuncture / Unknown 04/27/2025 4:31 PM EDT 04/27/2025 4:31 PM EDT us Tomasa JONES LAB BLOOD ORDERABLES Final R esult [facility] [address] [place] [address], * External Mammogram Report (10/03/2024) Anatomical Region [...] Most Recently Relevant to Health Maintenance Insurance [facility] [place]ICA[place] - [place] Care Teams Bladder Trimmer Relationship Specialty Start Date End Date Gwen Chinchilla MD [address] [place] [address] PCP - General Internal Medicine 07/06/25
== END 2025-07-17 13:32 | disposition home or self-care (01) ==
LOC: HO.HPSW 13:13
PROVIDERS: PCP Internal Medicine; Visit Provider Nurse Practitioner Family
DX: J45.909 Unspecified asthma, uncomplicated (principal); Z91.09 Other allergy status, other than to drugs and biological substances
CPT/HCPCS: 99214